=== PATIENT | female | born 1960 | race Two or more races ===

== ENCOUNTER 2021-07-04 08:32 | Inpatient (IN) | payer OTHER ==
[~2021-07-04] VITALS: Ht 162.6 cm; Wt 86.2 kg
[2021-07-06] MEDS ORDERED: LANSOPRAZOLE30 MG (14:42)
[2021-07-09] MEDS ORDERED: INTESTINEX680 M1 PO (15:05)
[2021-07-09] MEDS ORDERED: ULTRAM50 MG PO (15:06)
[2021-07-09] MEDS ORDERED: LEVSIN/SL0.125 MG SL (15:06)
== END 2021-07-09 15:40 | disposition home or self-care (01) | DRG 331 ==
LOC: SURH 07-06 08:45 → O/R 07-06 09:41 → SURH 07-06 09:41
PROVIDERS: ADMIT Surgery; ATTEND Surgery
PROC: 0DBP4ZZ Excision of Rectum, Percutaneous Endoscopic Approach (ICD-10-PCS; 2021-07-06)
PROC: 07BC4ZZ Excision of Pelvis Lymphatic, Percutaneous Endoscopic Approach (ICD-10-PCS; 2021-07-06)
PROC: 0DTN4ZZ Resection of Sigmoid Colon, Percutaneous Endoscopic Approach (ICD-10-PCS; principal; 2021-07-06 08:45)
DX: C19 Malignant neoplasm of rectosigmoid junction (principal); K57.30 Diverticulosis of large intestine without perforation or abscess without bleeding; R59.0 Localized enlarged lymph nodes; R19.4 Change in bowel habit; R14.0 Abdominal distension (gaseous); I73.89 Other specified peripheral vascular diseases

== ENCOUNTER 2021-08-10 07:56 | Day surgery (SDC) | payer OTHER ==
[~2021-08-10 07:56] MED LIST: INTESTINEX680 M1 PO; LANSOPRAZOLE30 MG; LEVSIN/SL0.125 MG SL; MIRALAX PO; ULTRAM50 MG PO
[2021-08-10] MEDS ORDERED: ULTRACET PO (09:51)
== END 2021-08-10 13:00 | disposition home or self-care (01) ==
LOC: CIR.AMB 07:56
PROVIDERS: ATTEND Surgery
DX: C19 Malignant neoplasm of rectosigmoid junction (principal); Z91.041 Radiographic dye allergy status; Z91.013 Allergy to seafood; Z20.822 Contact with and (suspected) exposure to COVID-19

== ENCOUNTER 2023-12-31 11:45 | Inpatient (IN) | payer OTHER ==
[~2023-12-31] VITALS: Ht 162.6 cm; Wt 90.7 kg
[~2023-12-31 11:45] MED LIST changes: +COZAAR50 MG PO; +ULTRACET PO
[2024-01-02] MEDS ORDERED: CEFOXITIN SODIUM 2,000 MG VIAL IV ONE (13:32)
[2024-01-02] MEDS ORDERED: ENALAPRILAT DIHYDRATE 1.25 MG/ML VIAL IV PRN (15:15)
[2024-01-02] MEDS ORDERED: POVIDONE-IODINE 118 ML BOTT TOP ONE (15:53)
[2024-01-02] MEDS ORDERED: VISTASEAL DUAL APPICATOR 1 EACH APPL TOP ONE (16:28)
[2024-01-02] MEDS ORDERED: THROMBIN,HU/FIBRINOGEN/CALCIUM 10 ML SYRINGE TOP ONE (16:28)
[2024-01-02] MEDS ORDERED: ONDANSETRON HCL 2 MG/ML VIAL IV PRN (20:00)
[2024-01-02] MEDS ORDERED: RINGERS SOLUTION,LACTATED 1,000 ML IV SCH (20:00)
[2024-01-02] MEDS ORDERED: MORPHINE SULFATE 4 MG/ML CARTRIDGE IV PRN (20:15)
[2024-01-02] MEDS ORDERED: FAMOTIDINE/PF 20 MG/2 ML VIAL IV SCH (21:00)
[2024-01-02] MEDS ORDERED: DOCUSATE SODIUM 100MG CAP PO SCH (21:00)
[2024-01-02] MEDS ORDERED: ONDANSETRON HCL 2 MG/ML VIAL ONE (23:56)
[2024-01-03] MEDS ORDERED: FAMOTIDINE/PF 20 MG/2 ML VIAL ONE (00:28)
[2024-01-03] MEDS ORDERED: KETOROLAC TROMETHAMINE 30 MG VIAL ONE (00:28)
[2024-01-03] MEDS ORDERED: CEFOXITIN SODIUM 2,000 MG VIAL IV SCH (01:00)
[2024-01-03] MEDS ORDERED: KETOROLAC TROMETHAMINE 30 MG VIAL IV SCH (01:00)
[2024-01-03 01:22] LABS: CALCIUM 8.9 mg/dL (8.5-10.1); CREATININE SERUM 0.6 mg/dL (0.55-1.02); GFR 100.97; POTASSIUM 4.64 mEq/L (3.5-5.1)
[2024-01-03 05:31] LABS: HEMATOCRIT 39.2 % (36.0-45.00); HEMOGLOBIN 13.3 g/dL (12.0-15.00); MEAN CELL VOLUME 82.8 fL (80.00-100.00); MEAN CORPUSCULAR HGB CONC 33.8 g/dl (32.0-36.0); PLATELET COUNT 203 K/uL (150-450); RED BLOOD COUNT 4.73 M/uL (4.00-6.00); RED CELL DISTRIBUTION WIDTH 14.4 % (11.5-14.5)
[2024-01-03 05:45] LABS: CALCIUM 8.7 mg/dL (8.5-10.1); CREATININE SERUM 0.65 mg/dL (0.55-1.02); GFR 92.06; POTASSIUM 4.76 mEq/L (3.5-5.1)
[2024-01-03] MEDS ORDERED: LOSARTAN POTASSIUM 50 MG TABLET PO SCH (09:00)
[2024-01-03] MEDS ORDERED: SIMETHICONE 125 MG CAPSULE PO SCH (09:00)
[2024-01-03] MEDS ORDERED: ENOXAPARIN SODIUM 40 MG/0.4 ML SYRINGE SUBCUTANEO SCH (09:00)
== END 2024-01-03 13:40 | disposition home or self-care (01) | DRG 741 ==
LOC: O/R 01-02 07:05 → SURG 01-02 11:45 → OB/GYN 01-02 22:07
PROVIDERS: Obstetrics & Gynecology; ADMIT Obstetrics & Gynecology Gynecologic Oncology; ATTEND Obstetrics & Gynecology Gynecologic Oncology
PROC: 0UT74ZZ Resection of Bilateral Fallopian Tubes, Percutaneous Endoscopic Approach (ICD-10-PCS; 2024-01-02)
PROC: 0UT24ZZ Resection of Bilateral Ovaries, Percutaneous Endoscopic Approach (ICD-10-PCS; 2024-01-02)
PROC: 07BC4ZZ Excision of Pelvis Lymphatic, Percutaneous Endoscopic Approach (ICD-10-PCS; 2024-01-02)
PROC: 0UT94ZZ Resection of Uterus, Percutaneous Endoscopic Approach (ICD-10-PCS; principal; 2024-01-02 19:45)
DX: C54.1 Malignant neoplasm of endometrium (principal); Z20.822 Contact with and (suspected) exposure to COVID-19